=== PATIENT | female | born 1945 | race Caucasian/White ===

== ENCOUNTER 2024-07-22 14:40 | Emergency (ER) | payer MEDICARE, SELFPAY ==
[2024-07-22] VITALS (31 sets, daily range): BP systolic 104–128; BP diastolic 60–75; PULSE 90–108; TEMP 35.5–36.6; O2SAT 88–100; BMI 30.1
--- NOTE | 2024-07-22 15:07 | ED.GENADUL1 ---
HPI HPI - General Adult General Chief complaint: Weakness Stated complaint: WEAKNESS Time Seen by Provider: 07/22/24 14:40 Mode of arrival: ambulance History of Present Illness HPI narrative: 78-year-old female presents for weakness. She is a poor historian. She does not know what year it is but she knows her name and where she is. She is not clear when this weakness started. She was brought in by her brother who lives in a house next to the patient who lives in her own house by herself. It appears that it has been a number of years since she has seen a physician. No further history is obtainable from the patient. She states only reason she came in was because her brother made her. Related Data Home Medications ?Medication ?Instructions ?Recorded ?Confirmed No Known Home Medications 07/22/24 07/22/24 Allergies Allergy/AdvReac Type Severity Reaction Status Date / Time No Known Drug Allergies Allergy Verified 07/22/24 14:41 Review of Systems ROS Narrative A ten point review of systems is negative except as noted above. Exam Narrative Exam Narrative: Nurses note and vital signs reviewed and patient is not hypoxic. General: The patient appears to and is malodorous. Skin: Warm and dry. There is a large open area below her right breast which is quite enlarged and is quite firm. The open area is across the length of the right hemithorax below the right breast. The open area is quite deep and deep subcutaneous tissue is visible. There does not appear to be any purulent drainage. There are some excoriations around it as well. Photographs are taken for documentation purposes. Head: Normocephalic, atraumatic Eye: Normal conjunctiva, no drainage Ears, Nose, Mouth, and Throat: oral mucosa is moist. Nares patent. Cardiovascular: Regular Rate and Rhythm Respiratory: Breath sounds are equal Back: non-tender GI: Soft and nontender Musculoskeletal: The patient has no evidence of calf tenderness, no pitting edema, symmetrical pulses noted bilaterally Neurological: Awake and alert. She knows her name and where she is but she does not know of the year. Psychiatric: Cooperative Constitutional Vital Signs, click to edit/add: Last Vital Signs Temp 96 F L 07/22/24 14:42 Pulse 93 H 07/22/24 16:50 Resp 21 H 07/22/24 16:50 BP 128/75 07/22/24 14:47 Pulse Ox 88 L 07/22/24 16:50 O2 Del Method Room Air 07/22/24 14:42 Course Vital Signs Vital signs: Vital Signs Temperature 96 F L 07/22/24 14:42 Pulse Rate 99 H 07/22/24 14:42 Respiratory Rate 18 07/22/24 14:42 Blood Pressure 128/75 07/22/24 14:42 Pulse Oximetry 98 07/22/24 14:42 Oxygen Delivery Method Room Air 07/22/24 14:42 Temperature 96 F L 07/22/24 14:42 Pulse Rate 93 H 07/22/24 16:50 Respiratory Rate 21 H 07/22/24 16:50 Blood Pressure 128/75 07/22/24 14:47 Pulse Oximetry 88 L 07/22/24 16:50 Oxygen Delivery Method Room Air 07/22/24 14:42 Medical Decision Making MDM Narrative Medical decision making narrative: The patient has a large fungating right breast mass with large open area that appears to be necrotic and is foul-smelling. This is likely breast cancer and this was explained to the patient and her brother. She will be transferred to a tertiary [facility], [place]. She is agreeable and stable for transfer. WC elevated at 19,000 and she was given IV Zosyn. Differential Diagnosis Differential Diagnosis: Breast mass, carcinoma, cellulitis, sepsis Lab Data Lab results reviewed: Yes I reviewed the patient's lab results Labs: Lab Results 07/22/24 Range/Units 15:45 WBC 19.9 H (4.0-11.0) 10^3/uL RBC 4.86 (4.20-5.40) 10^6/uL Hgb 13.0 (12.0-16.0) g/dL Hct 40.1 (36.0-48.0) % MCV 82.5 (81.0-99.0) fL MCH 26.7 (26.7-34.0) pg MCHC 32.4 (29.9-35.2) g/dL RDW 14.7 (11.0-15.0) % Plt Count 411 (150-450) 10^3/uL MPV 9.7 (9.5-13.5) fL Neut % (Auto) 88.6 H (43.0-75.0) % Lymph % (Auto) 4.2 L (20.5-60.0) % [place] % (Auto) 6.1 (1.7-12.0) % Eos % (Auto) 0.1 L (0.9-7.0) % Baso % (Auto) 0.2 (0.2-2.0) % Neut # (Auto) 17.7 H (1.4-6.5) 10^3/uL Lymph # (Auto) 0.8 L (1.2-3.8) 10^3/uL [place] # (Auto) 1.2 H (0.3-0.8) 10^3/uL Eos # (Auto) 0.0 (0.0-0.7) 10^3/uL Baso # (Auto) 0.0 (0.0-0.1) 10^3/uL Abs Immat Gran (auto) 0.16 H (0.00-0.03) 10^3/uL Imm/Tot Granulo (auto) 0.8 H (0.0-0.5) % Sodium 133 L (136-145) mmol/L Potassium 4.6 (3.5-5.1) mmol/L Chloride 99 (98-107) mmol/L Carbon Dioxide 25.4 (21.0-32.0) mmol/L Anion Gap 13.2 BUN 35.0 H (7.0-18.0) mg/dL Creatinine 1.25 H (0.55-1.02) mg/dL Est GFR ( Amer) 50 L (>=60 mL/min/1.73m^2) Est GFR (Non-Af Amer) 42 L (>=60 mL/min/1.73m^2) BUN/Creatinine Ratio 28.0 Glucose 228 H (74-106) mg/dL Lactate 1.9 (0.4-2.0) mmol/L Calcium 10.3 H (8.5-10.1) mg/dL Troponin I High Sens 8.9 (4.0-51.3) pg/mL Imaging Data Chest x-ray: Radiologist's impression: No acute process ECG Data Attestation: I personally reviewed and interpreted this ECG as follows: (EKG on my interpretation shows artifact. I believe P waves are present and I believe the patient is in sinus rhythm.) Discharge Plan Discharge Chief Complaint: Weakness Clinical Impression: Breast mass, right Patient Disposition: [facility] Time of Disposition Decision: 16:55 Discharge Location: [facility] Condition: Fair Mode of Transportation: EMS
--- NOTE | 2024-07-22 15:10 | ECG_ITS ---
[facility] Test Date: 2024-07-22 Pat Name: YURIDIA LONGORIA Department: Room: - Gender: Female [employer]: : [id number] Requested By: [id number] Order Number: [id number] Reading MD: LUTHER PEREZ M.D. Measurements Intervals Nursery Rate: 91 P: -[id number] CA: 150 QRS: 75 QRSD: 92 T: 64 QT: 390 QTc: 439 Interpretive Statements Sinus rhythm with premature supraventricular complexes 8102 Low QRS voltage in chest leads ARTIFACT IN LEAD(S) 9150 abnormal ECG No previous ECG available for comparison Electronically Signed On 07-22-2024 18:12:07 EDT by LUTHER PEREZ M.D.
--- NOTE | 2024-07-22 15:10 | PC.NURSE ---
Previous photos taken of right breast
[2024-07-22 15:56] LABS: Basophils Percent Auto 0.2 % (0.2-2.0); Eosinophils Percent Auto 0.1 % (0.9-7.0); Hematocrit 40.1 % (36.0-48.0); Immature Granulocytes Abs Auto 0.16 10^3/uL (0.00-0.03); Immature Granulocytes Pct Auto 0.8 % (0.0-0.5); Lymphocytes Absolute Auto 0.8 10^3/uL (1.2-3.8); Lymphocytes Percent Auto 4.2 % (20.5-60.0); Mean Corpuscular HGB Conc 32.4 g/dL (29.9-35.2); Mean Corpuscular Hemoglobin 26.7 pg (26.7-34.0); Mean Corpuscular Volume 82.5 fL (81.0-99.0); Mean Platelet Volume 9.7 fL (9.5-13.5); Monocytes Absolute Auto 1.2 10^3/uL (0.3-0.8); Monocytes Percent Auto 6.1 % (1.7-12.0); Neutrophils Absolute Auto 17.7 10^3/uL (1.4-6.5); Neutrophils Percent Auto 88.6 % (43.0-75.0); Platelet Count 411 10^3/uL (150-450); Red Blood Count 4.86 10^6/uL (4.20-5.40); Red Cell Distribution Width 14.7 % (11.0-15.0); White Blood Count 19.9 10^3/uL (4.0-11.0)
[2024-07-22 16:04] LABS: Anion Gap 13.2; Calcium 10.3 mg/dL (8.5-10.1); Carbon Dioxide 25.4 mmol/L (21.0-32.0); Chloride 99 mmol/L (98-107); Estimated GFR (African America 50 (>=60 mL/min/1.73m^2); Estimated GFR (Non-African Ame 42 (>=60 mL/min/1.73m^2); Glucose 228 mg/dL (74-106); Potassium 4.6 mmol/L (3.5-5.1); Sodium 133 mmol/L (136-145)
[2024-07-22 16:12] LABS: Lactate/Lactic Acid 1.9 mmol/L (0.4-2.0); Troponin I High Sensitivity 8.9 pg/mL (4.0-51.3)
[2024-07-22] MEDS: PIPERACILLIN SODIUM/TAZOBACTAM 3.375 GM in 0.9 % SODIUM CHLORIDE 50 ML IV (16:53)
[2024-07-22] MEDS: MORPHINE SULFATE 2 MG/ML SYRINGE IV ×2 (19:00→22:56)
--- NOTE | 2024-07-23 12:17 | SWNOTE1 ---
KAMRAN received a message from Sue from [facility] in regards to patient. KAMRAN called Sue back, had to leave voicemail.
== END 2024-07-22 22:53 | disposition short-term general hospital (02) ==
PROVIDERS: Emergency Provider Emergency Medicine; PCP Family Medicine
DX: N63.10 Unspecified lump in the right breast, unspecified quadrant (principal); S21.001A Unspecified open wound of right breast, initial encounter
CPT/HCPCS: 36415; 71045; 80048; 81001; 83605; 84484; 85025; 87040; 93005; 96365; 96375; 96376; 99285; J2270; J2543